=== PATIENT | male | born 1980 | race Caucasian/White ===

== ENCOUNTER 2017-02-18 11:33 | Day surgery (SDC) | payer BC ==
[~2017-02-18] VITALS: Ht 188 cm; Wt 105.3 kg
[2017-02-18] MEDS ORDERED: CHOLESTEROL MED (12:19)
[2017-02-18 12:29] VITALS: Ht 188 cm; Wt 105.3 kg
[2017-02-18 12:50] VITALS: BP 132/66; PULSE 70; RESP 14
[2017-02-18 13:58] VITALS: BP 105/63; PULSE 67; RESP 13
[2017-02-18] MEDS ORDERED: MIDAZOLAM 1 MG/ML 2 ML INJ ONE ×2 (14:01)
[2017-02-18] MEDS ORDERED: FENTAnyl 50 MCG/ML VIAL ONE (14:01)
[2017-02-18 14:24] VITALS: BP 111/70; RESP 20
--- NOTE | 2017-02-18 14:35 | OPPN ---
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 For colonoscopy moderate sedation 23 minutes) Estimated blood loss: none Transfusion Required none Specimen None Grafts/Implants none Complications none VIKY TALLEY MD Feb 18, 2017 14:35
--- NOTE | 2017-02-19 14:52 | GILP ---
DATE OF PROCEDURE: 02/18/2017 INDICATIONS: This patient has been referred for screening colonoscopy because multiple members of t he family had colon cancer, nearly 3 generations, close family and also cousins and aunt. 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 The patient has been referred for colonoscopy. PROCEDURE DONE: Colonoscopy up to cecum. POSTOPERATIVE DIAGNOSIS: Normal colon. PROCEDURE IN DETAIL: After obtaining informed consent, the patient was given 4 mg IV Versed and 75 mcg of fentanyl. Rectal exam done, which was normal. Advanced an Olympus video colonoscope all the way to cecum. Appendiceal opening and ileocecal valve were identified. Cecum, ascending colon, transverse colon, descending colon, sigmoid colon, and re ctum, including retroflexion, all normal. Photography done throughout the procedure. Plan will be to observe, follow up as outpatient. Next year I would recommend that he go for Cologu elijah also and look for upper endoscopy and even further evaluation of the duodenum to see any other p olyps, etc. Dictated By: VIKY CHATMAN Conf#: [id number] DID#: [id number]
== END 2017-02-18 14:34 | disposition home or self-care (01) ==
LOC: GIL 11:33
PROVIDERS: ATTEND Internal Medicine
DX: Z12.11 Encounter for screening for malignant neoplasm of colon (principal); Z80.0 Family history of malignant neoplasm of digestive organs
CPT/HCPCS: 45378; J2250; J3010; Z7610

== ENCOUNTER 2017-03-09 09:55 | Outpatient (CLI) | END 2017-03-09 17:00 | disposition home or self-care (01) ==

== ENCOUNTER 2017-04-04 10:28 | Day surgery (SDC) | END 2017-04-04 17:00 | disposition home or self-care (01) ==

== ENCOUNTER 2017-04-13 15:40 | Outpatient (CLI) | END 2017-04-13 17:00 | disposition home or self-care (01) ==